=== PATIENT | male | born 1955 ===

== ENCOUNTER → 2017-05-07 | Outpatient (CLI) | payer MEDICAID | LOC: CIMAGING 14:04 | PROVIDERS: ATTEND Family Medicine | DX: R91.8 Other nonspecific abnormal finding of lung field (principal); I25.10 Atherosclerotic heart disease of native coronary artery without angina pectoris; Z85.72 Personal history of non-Hodgkin lymphomas | CPT/HCPCS: 71020-PO ==

== ENCOUNTER 2017-11-08 11:16 | Inpatient (IN) | payer OTHER, MEDICAID ==
--- NOTE | 2017-11-08 11:25 | CPEKG ---
Heart Rate: 95 RR Interval: 632 P-R Interval: 152 QRSD Interval: 156 QT Interval: 440 QTC Interval: 553 P [place]: 234 QRS [place]: 76 T Wave [place]: -88 EKG Severity - ABNORMAL ECG - EKG Impression: ECTOPIC ATRIAL RHYTHM EKG Impression: NONSPECIFIC INTRAVENTRICULAR CONDUCTION DELAY Electronically Signed By: Ulises Gibson 08-Nov-2017 15:04:17
[2017-11-08 11:38] LABS: PLATELET COUNT 138 10^3/uL (150-400)
[2017-11-08 11:47] LABS: INR 1.05 (0.83-1.16); PROTIME(PATIENT) 13.9 SEC (12.0-15.0)
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
--- NOTE | 2017-11-08 13:50 | CPEKG ---
Heart Rate: 79 RR Interval: 759 P-R Interval: 216 QRSD Interval: 114 QT Interval: 436 QTC Interval: 500 P [place]: 86 QRS [place]: 73 T Wave [place]: 77 EKG Severity - ABNORMAL ECG - EKG Impression: SINUS RHYTHM EKG Impression: FIRST DEGREE AV BLOCK EKG Impression: NONSPECIFIC INTRAVENTRICULAR CONDUCTION DELAY EKG Impression: PROBABLE LEFT VENTRICULAR HYPERTROPHY Electronically Signed By: Ulises Gibson 08-Nov-2017 15:04:23
--- NOTE | 2017-11-08 14:19 | ECHO ---
[email or web address] [address] [address] Main: [phone] Fax: [email or web address] Echocardiogram Name: LEEANN MURPHY MR#: [id number] Study Date: 11/08/2017 Study Time: 01:36 PM Date of : 1955 Age: 62 year(s) Height: 175.3 cm (69 in.) Weight: 68.04 kg (150 lb.) BSA: 1.83 m2 Gender: Male Examination: Echo Indication: seizure/LBBB/CAD Image Quality: Adequate Contrast: Requested by: Isaias Hawthorne BP: 108 mmHg/71 mmHg Heart Rate: Rhythm: Normal sinus rhythm Indication: seizure/LBBB/CAD Procedure Staff Vocational Aide: Chantelle Manriquez [facility] Reading Physician: Isaias Hawthorne MD Requesting Provider: Conclusions: Normal global systolic LV function. EF is 55 %. Mildly abnormal septal motion most likely secondary to LBBB, otherwise no regional wall motion abnormalities identified. Trivial to mild mitral regurgitation. Trivial tricuspid valve regurgitation. Measurements: Chambers Valvular Assessment AV/MV Valvular Assessment TV/PV Normal Normal Normal Name Value Range Name Value Range Name Value Range Ao Jessica (MM): 3.4 cm (2.2 cm-3.7 AV Vmax: 1.40 m/s (1 m/s-1.7 PV Vmax: 1.02 m/s (0.6 m/s-0.9 cm) m/s) m/s) IVSd (2D): 0.9 cm (0.6 cm-1.1 AV maxP mmHg ( - ) PV PGmax: 4 mmHg ( - ) cm) LVOT Vmax: 0.90 m/s (0.7 m/s-1.1 LVDd (2D): 5.4 cm (4.2 cm-5.9 m/s) cm) MV E Vmax: 0.61 m/s ( - ) LVDs (2D): 4.0 cm (2.1 cm-4 MV A Vmax: 0.69 m/s ( - ) cm) MV E/A: 0.88 ( - ) LVPWd (2D): 1.0 cm (0.6 cm-1 cm) LVEF (BP): 55 % (>=55 %) RVDd(2D): 3.3 cm (1.9 cm-3.8 cmmm) Continued Measurements: Chambers Valvular Assessment AV/MV Name Value Name Value LADs Lon.6 cm MV DecTime: 183 m/s Patient: LEEANN MURPHY Study Date: 11/08/2017 Page 1 of 2 01:36 PM LA Area: 19.4 cm2 MV E/E' Septal: 11.70 LA Volume: 65 ml MV E/E' Lateral: 5.40 LA Volume Index: 35.5 ml/m2 TAPSE: 1.8 cm RA Area: 17.3 cm2 Findings: Left Ventricle: Normal size left ventricle. No LV hypertrophy. Normal global systolic LV function. EF is 55 %. Normal diastolic LV function. Mildly abnormal septal motion most likely secondary to LBBB, otherwise no regional wall motion abnormalities identified. Right Ventricle: Normal size right ventricle. Normal RV function. Left Atrium: The left atrium is normal in size. Right Atrium: The right atrium is normal in size. Mitral Valve: The mitral valve is normal in appearance and function. There is mild thickening of the mitral valve leaflets. Trivial to mild mitral regurgitation. No mitral stenosis is present. Aortic Valve: The aortic valve is tri-leaflet and functions normally. There is no aortic valve regurgitation. No aortic valve stenosis is present. Tricuspid Valve: The tricuspid valve is normal in appearance and function. Trivial tricuspid valve regurgitation. Pulmonary artery pressure is not obtained due to inadequate TR jet. Pulmonic Valve: The pulmonic valve is normal in appearance and function. There is no pulmonic regurgitation seen. Aorta: Ascending aorta not well visualized. The aorta is normal. Normal size aortic root measuring 3.4 cm. IVC: The IVC is normal sized. Pericardium: No pericardial effusion. (No Signature Object) Patient: LEEANN MURPHY Study Date: 11/08/2017 Page 2 of 2 01:36 PM [id number]
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
[2017-11-08] MEDS ORDERED: ONDANSETRON 4 MG/2 ML VIAL IVP PRN (15:00)
[2017-11-08] MEDS ORDERED: NS 1,000 ML IV SCH (15:00)
[2017-11-08] MEDS ORDERED: ONDANSETRON DISINTEGRATING 4 MG TAB PO PRN (15:00)
[2017-11-08] MEDS ORDERED: ACETAMINOPHEN 325 MG TAB PO PRN (15:00)
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
[2017-11-08] MEDS: CARVEDILOL 3.125 MG TAB PO SCH (17:42)
[2017-11-08] MEDS ORDERED: DOXEPIN HCL 50 MG CAP PO SCH (21:00)
[2017-11-08] MEDS: TAMSULOSIN HCL 0.4 MG CAP PO SCH (21:12)
[2017-11-08] MEDS: ATORVASTATIN CALCIUM 40 MG TAB PO SCH (21:12)
[2017-11-09 05:04] LABS: PLATELET COUNT 108 10^3/uL (150-400)
[2017-11-09] MEDS ORDERED: NON-FORMULARY NEW DRUG (Escitalopram Oxalate [Lexapro] 20 MG) PO SCH (09:00)
[2017-11-09] MEDS ORDERED: ESCITALOPRAM OXALATE 10 MG TAB PO SCH (09:00)
[2017-11-09] MEDS ORDERED: NON-FORMULARY NEW DRUG (Omeprazole [Omeprazole] 20 MG) PO SCH (09:00)
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
[2017-11-09] MEDS: PANTOPRAZOLE SODIUM 40 MG TAB PO SCH (10:35)
[2017-11-09] MEDS: CARVEDILOL 3.125 MG TAB PO SCH ×2 (10:36→17:59)
[2017-11-09] MEDS: ASPIRIN 81 MG CHEWABLE TAB PO SCH (10:36)
[2017-11-09] MEDS: ENOXAPARIN 40 MG/0.4 ML SYR SC SCH (10:36)
[2017-11-09] MEDS ORDERED: diphenhydrAMINE 25 MG CAP PO PRN (13:55)
--- NOTE | 2017-11-09 13:59 | HOSPPROG ---
Hospitalist Progress Note Assessment/Plan: * Syncope vs. seizure -with QT prolongation suspect syncope with subsequent sz like activity * Prolonged QT -DC doxepin and lexapro -LINQ to be placed in am -recheck EKG am off meds * Ischemic cardiomyopathy -EF has normalized * Insomnia -has tried almost all pharm options in past -agreeable to DC doxepin -benadryl qhs prn * Depression -recommended Paxil or Wellbutrin as these do not prolong QT -he would like to go without for now (has tried these meds in past) * Lymphoma, in remission -MRI negative for cerebral mets * CAD/stent * Mild cervical spinal stenosis * Tobacco dependence Subjective: No more complaints. Objective: Vital Signs Temp Pulse Resp BP Pulse Ox 36.7 C 81 18 104/67 86 L 11/09/17 12:00 11/09/17 12:00 11/09/17 12:00 11/09/17 12:00 11/09/17 12:00 Laboratory Results 11/09/17 03:49 11/09/17 03:49 11/08/17 11/09/17 11/10/17 05:59 05:59 05:59 Intake Total 1450 Output Total 400 Balance 1050 PT 13.9 SEC (12.0-15.0) 11/08/17 11:15 INR 1.05 (0.83-1.16) 11/08/17 11:15 d/w Oneyda Martinez - QT prolonged, suspect arrhythmia related to this MRI brain - negative EKG viewed, my personal interpretation is - QT much greater than 500 on admission with widened QRS - Physical Exam Constitutional: no apparent distress, appears nourished, not in pain Cardiovascular: regular rate and rhythym, no murmur, rub, or gallop Respiratory: no respiratory distress, no rales or rhonchi, clear to auscultation Gastrointestinal: normoactive bowel sounds, soft, non-tender abdomen, no palpable masses Skin: no rashes or abrasions, no fluctuance, no induration Neurologic: AAOx3, sensation intact bilaterally Psychiatric: interacting appropriately, not anxious, not encephalopathic, thought process linear ICD10 Worksheet Patient Problems: Problems Problem Status Onset Syncope Acute
--- NOTE | 2017-11-09 14:51 | PDMN ---
Medical Necessity Medical necessity: C/M review: est. > 2 MN LOS for eval and TX of acute syncope versus seizure, prolonged QT - suspect syncope with seizure like activity requiring Cardiology consult, planned LINQ to be placed 11/10/2017, EKG off medications - Doxepin and Lexapro, ongoing discontinue Doxepin and Lexapro, comorbid ischemic cardiomyopathy, insomnia, depression, lymphoma, CAD/ stent, mild cervical stenosis, tobacco dependence per 11/09/2017 Hospitalist progress note.
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
[2017-11-09] MEDS: CALCIUM CARBONATE 500 MG CHEWABLE TAB PO PRN ×2 (16:10→22:25)
[2017-11-09] MEDS: ATORVASTATIN CALCIUM 40 MG TAB PO SCH (20:04)
[2017-11-09] MEDS: TAMSULOSIN HCL 0.4 MG CAP PO SCH (20:04)
--- NOTE | 2017-11-10 08:26 | CPEKG ---
Heart Rate: 72 RR Interval: 833 P-R Interval: 172 QRSD Interval: 108 QT Interval: 448 QTC Interval: 491 P Clayton: 78 QRS Clayton: 73 T Wave Clayton: 77 EKG Severity - BORDERLINE ECG - EKG Impression: SINUS RHYTHM EKG Impression: BORDERLINE PROLONGED QT INTERVAL Electronically Signed By: Scott Conti 10-Nov-2017 19:33:58
[2017-11-10] MEDS ORDERED: IOPAMIDOL (ISOVUE 370) 100 ML BTL IV ONE (08:55)
[2017-11-10] MEDS: PANTOPRAZOLE SODIUM 40 MG TAB PO SCH ×2 (09:02→09:03)
[2017-11-10] MEDS: CARVEDILOL 3.125 MG TAB PO SCH (09:02)
[2017-11-10] MEDS: ENOXAPARIN 40 MG/0.4 ML SYR SC SCH (09:03)
[2017-11-10] MEDS: ASPIRIN 81 MG CHEWABLE TAB PO SCH (09:04)
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
[2017-11-10] MEDS ORDERED: guaiFENesin 600 MG TAB.ER PO SCH (12:00)
[2017-11-10] MEDS ORDERED: IPRATROPIUM/ALBUTEROL 3 ML DEYVIAL IH SCH (12:00)
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
--- NOTE | 2017-11-10 12:28 | ASMTCMCOM ---
CM Note CM Note Notes: Chart reviewed. Also discussed in rounds. Per hospitalist, cardiology feels this syncope likely neurogenic. Per neurology, patient to start anti seizure medication and have further detailed workup for possible seizures, No needs identified CM available should needs arise. Plan: Home independent with driving restrictions and outpatient follow up. Date Signed: 11/10/2017 12:27 PM Electronically Signed By:Nay Velasquez RN
[2017-11-10 13:49] VITALS: BP 111/71
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
== END 2017-11-10 17:01 | disposition home or self-care (01) | DRG 101 ==
LOC: EDUNIT# → OBSVTOIN 14:31 → F2W 15:43
PROVIDERS: ADMIT Internal Medicine; ATTEND Internal Medicine
DX: R56.9 Unspecified convulsions (principal); R55 Syncope and collapse; I45.81 Long QT syndrome; I25.5 Ischemic cardiomyopathy; R41.82 Altered mental status, unspecified; I44.7 Left bundle-branch block, unspecified; M54.2 Cervicalgia; I25.10 Atherosclerotic heart disease of native coronary artery without angina pectoris; I25.2 Old myocardial infarction; F32.9 Major depressive disorder, single episode, unspecified; G47.00 Insomnia, unspecified; M48.02 Spinal stenosis, cervical region; F17.210 Nicotine dependence, cigarettes, uncomplicated; R05 Cough; I10 Essential (primary) hypertension; Z85.72 Personal history of non-Hodgkin lymphomas; Z95.5 Presence of coronary angioplasty implant and graft; Z92.21 Personal history of antineoplastic chemotherapy
CPT/HCPCS: 82947-QW; 97161-GP; G0378; G0480; J1650; Q9967